=== PATIENT | female | born 1965 | race Caucasian/White ===

== ENCOUNTER 2020-09-05 20:25 | Inpatient (IN) ==
[2020-09-05] MEDS ORDERED: haloperidoL 5 MG TABLET PO STA (23:44)
[2020-09-06] MEDS ORDERED: Acetaminophen 325 MG TABLET PO PRN (05:38)
[2020-09-06] MEDS ORDERED: Mag Hydrox/Al Hydrox/Simeth 30 ML UDC PO PRN (05:38)
[2020-09-06] MEDS ORDERED: traZODone 50 MG TABLET PO PRN (05:38)
[2020-09-06] MEDS ORDERED: MOM Conc 10 ML UD.LIQ PO PRN (05:38)
[2020-09-06] MEDS ORDERED: haloperidoL 5 MG TABLET PO PRN (05:38)
[2020-09-06] MEDS ORDERED: hydrOXYzine pamoate 25 MG CAPSULE PO PRN (05:38)
[2020-09-06] MEDS ORDERED: Haloperidol Lactate 5 MG/ML VIAL IM PRN (05:38)
[2020-09-06] MEDS ORDERED: *HR* LORazepam 2 MG/ML VIAL IM STA ×2 (08:47→09:33)
[2020-09-06] MEDS: *HR* Buprenorphine HCl 8 MG TAB.SUBL SL SCH ×2 (09:10→18:36)
[2020-09-06] MEDS ORDERED: OLANZapine 10 MG TAB.RAPDIS PO STA ×2 (09:30→17:53)
[2020-09-06] MEDS ORDERED: *HR* Rivaroxaban 15 MG TABLET PO SCH (16:15)
[2020-09-06] MEDS ORDERED: *HR* LORazepam 2 MG/ML VIAL IM ONE (19:16)
[2020-09-07] MEDS ORDERED: Ziprasidone 20 MG in Water for inj. (sterile) 1 ML IM ONE (00:06)
[2020-09-07 01:05] LABS: Bacteria,Urine Few per hpf (None-Few); Bilirubin,Urine Negative (Negative); Blood,Urine Small (Negative); Clarity,Urine Clear (Clear); Color,Urine Yellow (Yellow); Glucose,Urine (UA) Normal (Normal); Ketones,Urine Trace mg/dL (Negative); Leukocyte Esterase,Urine Small (Negative); Mucus,Urine Many per lpf (None-Few); Nitrite,Urine Negative (Negative); Protein,Urine 50 mg/dL (Neg-Trace); Specific Gravity,Urine 1.025 (1.010-1.025); Squamous Epithelial Cell,Urine Few per hpf (None-Few); WBC,Urine 15-30 per hpf (0-3)
[2020-09-07 08:03] LABS: Hemoglobin 12.6 g/dL (11.5-15.4); Mean Corpuscular HGB Conc 33.2 g/dL (31.6-35.5); Mean Corpuscular Hemoglobin 30.6 pg (28.0-33.3); Mean Corpuscular Volume 92.2 fL (83.0-100.0); Mean Platelet Volume 9.8 fL (9.4-12.4); Platelet Count 477 K/mcL (140-400); Red Blood Count 4.12 M/mcL (3.82-4.97); Red Cell Distribution Width 13.2 % (11.5-14.5); White Blood Count 16.3 K/mcL (4.3-11.1)
[2020-09-07 08:20] VITALS: BP 124/67
[2020-09-07 08:22] LABS: % Iron Saturation 19 % (15-50); BUN/Creatinine Ratio 20 (6-26); Blood Urea Nitrogen 17 mg/dL (6-20); Calcium 9.2 mg/dL (8.6-10.3); Carbon Dioxide 25 mEq/L (23-29); Chloride 109 mEq/L (98-107); Creatine Kinase 674 Units/L (30-223); Glucose 61 mg/dL (70-105); Iron 61 mcg/dL (50-170); Osmolality,Calculated 293 (280-300); Potassium 3.8 mEq/L (3.5-5.1); Sodium 142 mEq/L (136-145); Transferrin 232 mg/dL (203-362); eGFR For African Americans > 60 (> 60); eGFR For Non-African Americans > 60 (> 60)
[2020-09-07 08:41] LABS: Lymphocytes # 10.8 K/mcL (0.6-4.6); Monocytes # 0.3 K/mcL (0.0-1.3); Neutrophils # 5.2 K/mcL (1.6-8.9)
[2020-09-07 08:42] LABS: Platelet Estimate Normal (Normal); Reactive Lymphocytes Present (Not Present)
[2020-09-07] MEDS ORDERED: *HR* Rivaroxaban 15 MG TABLET PO SCH (09:00)
[2020-09-07 09:20] LABS: C-Reactive Protein < 5 mg/L (Less than 10)
== END 2020-09-07 11:10 | disposition other institution (70) | DRG 757 ==
LOC: EMEROOARM 20:25 → 1ANU 09-06 05:20
PROVIDERS: ADMIT Psychiatry & Neurology Forensic Psychiatry; ATTEND Psychiatry & Neurology Forensic Psychiatry

== ENCOUNTER 2020-09-07 09:36 | Observation (INO) ==
[2020-09-07] MEDS ORDERED: Naloxone 0.4 MG/ML INJ IVP PRN (09:41)
[2020-09-07] MEDS ORDERED: Ondansetron 4 MG/2 ML VIAL IVP PRN (09:41)
[2020-09-07] MEDS ORDERED: D5% in 0.9% NACL 1,000 ML IVC SCH (09:45)
[2020-09-07] MEDS ORDERED: D5% in Water 1,000 ML IVC PRN (11:31)
[2020-09-07] MEDS ORDERED: *HR* Dextrose 50 % in Water (Vial) 50 ML VIAL IVP PRN (11:31)
[2020-09-07] MEDS ORDERED: Dextrose Gel 15 GM/37.5 ML TUBE PO PRN ×2 (11:31)
[2020-09-07] MEDS ORDERED: 0.9 % Sodium Chloride 1,000 ML IVC SCH (12:46)
[2020-09-07] MEDS ORDERED: Acetaminophen 325 MG TABLET PO PRN (13:33)
[2020-09-07] MEDS ORDERED: Haloperidol Lactate 5 MG/ML VIAL IM PRN (13:33)
[2020-09-07] MEDS: Nicotine 14 MG PATCH.TD24 TD SCH (14:28)
[2020-09-07] MEDS ORDERED: Ziprasidone 20 MG in Water for inj. (sterile) 1 ML IM PRN (15:37)
[2020-09-07] MEDS ORDERED: *HR* LORazepam 1 MG TABLET PO PRN ×2 (15:39→15:46)
[2020-09-07] MEDS ORDERED: *HR* LORazepam 2 MG/ML VIAL IM PRN (15:42)
[2020-09-07] MEDS ORDERED: *HR* Rivaroxaban 15 MG TABLET PO SCH (17:00)
[2020-09-07] MEDS ORDERED: Enoxaparin Weight Dosing SQ SCH (18:00)
[2020-09-07] MEDS: D5% in 0.9% NACL 1,000 ML IVC SCH (19:29)
[2020-09-07] MEDS: BUPRENORPHINE SL SCH (19:29)
[2020-09-07] MEDS: NALOXONE SL SCH (19:29)
[2020-09-08 04:59] LABS: Amphetamine Screen,Urine Negative ng/mL (Cutoff=1000); Barbiturate Screen,Urine Negative ng/mL (Cutoff=200); Benzodiazepines Screen,Urine Negative ng/mL (Cutoff=200); Cannabinoid Screen,Urine Negative ng/mL (Cutoff = 50); Cocaine Screen,Urine Negative ng/mL (Cutoff= 300); Opiate Screen,Urine Negative ng/mL (Cutoff=300); Phencyclidine Screen,Urine Negative ng/mL (Cutoff=25)
[2020-09-08 05:18] LABS: Basophils # 0.1 K/mcL (0.0-0.2); Basophils % 0.9 %; Eosinophils # 0.1 K/mcL (0.0-0.6); Eosinophils % 0.8 %; Hematocrit 38.8 % (35.3-44.9); Hemoglobin 12.4 g/dL (11.5-15.4); Immature Granulocytes % 0.3 % (0-4); Lymphocytes % 54.1 %; Mean Corpuscular Hemoglobin 29.7 pg (28.0-33.3); Mean Corpuscular Volume 92.8 fL (83.0-100.0); Mean Platelet Volume 10.1 fL (9.4-12.4); Monocytes # 1.3 K/mcL (0.0-1.3); Monocytes % 8.2 %; Neutrophils # 5.6 K/mcL (1.6-8.9); Platelet Count 486 K/mcL (140-400); Red Blood Count 4.18 M/mcL (3.82-4.97); Red Cell Distribution Width 13.3 % (11.5-14.5); Segmented Neutrophils % 35.7 %; White Blood Count 15.8 K/mcL (4.3-11.1)
[2020-09-08] MEDS: D5% in 0.9% NACL 1,000 ML IVC SCH (05:32)
[2020-09-08 05:36] LABS: BUN/Creatinine Ratio 24 (6-26); Blood Urea Nitrogen 18 mg/dL (6-20); Calcium 8.6 mg/dL (8.6-10.3); Carbon Dioxide 25 mEq/L (23-29); Chloride 113 mEq/L (98-107); Creatine Kinase 353 Units/L (30-223); Glucose 100 mg/dL (70-105); Osmolality,Calculated 296 (280-300); Sodium 142 mEq/L (136-145); eGFR For African Americans > 60 (> 60); eGFR For Non-African Americans > 60 (> 60)
[2020-09-08 05:55] LABS: Lymphocytes # 8.6 K/mcL (0.6-4.6)
[2020-09-08 06:01] LABS: Reactive Lymphocytes Present (Not Present)
[2020-09-08] MEDS: BUPRENORPHINE SL SCH (09:57)
[2020-09-08] MEDS: NALOXONE SL SCH (09:57)
[2020-09-08 10:37] LABS: Bacteria,Urine Few per hpf (None-Few); Bilirubin,Urine Negative (Negative); Blood,Urine Negative (Negative); Clarity,Urine Clear (Clear); Color,Urine Light-Yellow (Yellow); Glucose,Urine (UA) 50 mg/dL (Normal); Ketones,Urine Negative (Negative); Leukocyte Esterase,Urine Negative (Negative); Mucus,Urine Few per lpf (None-Few); Nitrite,Urine Negative (Negative); PH,Urine 6.5 pH Units (5.0-8.0); Protein,Urine Negative (Neg-Trace); RBC,Urine 0-3 per hpf (0-3); Specific Gravity,Urine 1.011 (1.010-1.025); Squamous Epithelial Cell,Urine Few per hpf (None-Few); Urobilinogen,Urine Normal (Normal); WBC,Urine 0-3 per hpf (0-3)
[2020-09-08 11:20] VITALS: BP 135/78
[2020-09-08] MEDS: Nicotine 14 MG PATCH.TD24 TD SCH (12:26)
== END 2020-09-08 13:56 ==
LOC: 3ANU
PROVIDERS: ADMIT Internal Medicine; ATTEND Internal Medicine

== ENCOUNTER 2020-09-08 15:41 | Observation (INO) ==
[2020-09-08] MEDS ORDERED: QUEtiapine Fumarate 25 MG TABLET PO PRN (16:36)
[2020-09-08] MEDS ORDERED: Mag Hydrox/Al Hydrox/Simeth 30 ML UDC PO PRN (16:36)
[2020-09-08] MEDS ORDERED: Haloperidol Lactate 5 MG/ML VIAL IM PRN (16:36)
[2020-09-08] MEDS ORDERED: hydrOXYzine pamoate 25 MG CAPSULE PO PRN (16:36)
[2020-09-08] MEDS ORDERED: haloperidoL 5 MG TABLET PO PRN (16:36)
[2020-09-08] MEDS ORDERED: *HR* LORazepam 1 MG TABLET PO PRN ×2 (16:36→17:12)
[2020-09-08] MEDS ORDERED: *HR* LORazepam 2 MG/ML VIAL IM PRN ×2 (16:36→17:23)
[2020-09-08] MEDS ORDERED: MOM Conc 10 ML UD.LIQ PO PRN (16:36)
[2020-09-08] MEDS ORDERED: Acetaminophen 325 MG TABLET PO PRN (16:36)
[2020-09-08] MEDS ORDERED: Ziprasidone 20 MG CAPSULE PO PRN (22:01)
[2020-09-08] MEDS ORDERED: Ziprasidone 20 MG in Water for inj. (sterile) 1 ML IM PRN (22:06)
[2020-09-09] MEDS ORDERED: *HR* Rivaroxaban 15 MG TABLET PO SCH (09:00)
[2020-09-09 09:13] VITALS: BP 131/83
[2020-09-09] MEDS ORDERED: *HR* Buprenorphine HCl 8 MG TAB.SUBL SL SCH (11:30)
== END 2020-09-09 13:30 | disposition home or self-care (01) ==
LOC: INTOOBSV 15:41 → 1ANU 15:41
PROVIDERS: ADMIT Psychiatry & Neurology Forensic Psychiatry; ATTEND Psychiatry & Neurology Forensic Psychiatry